=== PATIENT | male | born 1995 | race Caucasian/White ===

== ENCOUNTER 2021-11-05 16:37 | Emergency (ER) | payer OTHER ==
[2021-11-05] VITALS (8 sets, daily range): BP systolic 123–148; BP diastolic 76–92
[~2021-11-05] VITALS: Ht 177.8 cm; Wt 86.0 kg
[2021-11-05 17:24] LABS: HEMATOCRIT 43.2 % (39.0-50.0); HEMOGLOBIN 15.1 g/dl (14.0-18.0); IMMATURE GRANULOCYTES 0.2 % (0.0-5.0); MEAN CELL VOLUME 84.9 fL CALC (80.0-100.0); MEAN CORPUSCULAR HGB 29.7 pG CALC (26.0-32.0); NEUT# 3.48 thou/uL (1.82-7.42); RED BLOOD COUNT 5.09 mill/uL (4.70-6.10); RED CELL DISTRI WIDTH 12.5 % (11.5-15.5)
[2021-11-05 17:32] LABS: ALBUMIN 4.3 g/dL (3.2-5.0); ALKALINE PHOSPHATASE 38 u/l (38-126); ANION GAP 12 (6-22 (CALC)); BILIRUBIN, TOTAL 0.6 mg/dL (0.0-1.4); BUN 16 mg/dL (9-20); BUN/CREATININE RATIO 19 (12-20 (CALC)); CARBON DIOXIDE 28 mmol/l (22-30); CHLORIDE 100 mmol/l (95-108); CREATININE 0.9 mg/dL (0.7-1.3); GFR > 60 ML/MIN (>=60 (CALC)); GFR FOR AFR.AMER. > 60 ML/MIN (>=60 (CALC)); LIPASE 59 u/l (23-300); POTASSIUM 3.9 mmol/l (3.5-5.1); SGOT/AST 45 u/l (17-59); SODIUM 136 mmol/l (137-146); TOTAL PROTEIN 7.1 g/dL (6.3-8.2)
[2021-11-05] MEDS ORDERED: OMNI-PAC300 MG PO (18:23)
== END 2021-11-05 19:30 | disposition home or self-care (01) | DRG 605 ==
LOC: ED 16:37
PROVIDERS: Family Medicine
PROC: 0HQ0XZZ Repair Scalp Skin, External Approach (ICD-10-PCS; principal; 2021-11-05)
DX: S01.01XA Laceration without foreign body of scalp, initial encounter (principal); S06.0X0A Concussion without loss of consciousness, initial encounter; V53.5XXA Driver of pick-up truck or van injured in collision with car, pick-up truck or van in traffic accident, initial encounter
CPT/HCPCS: Q9967